=== PATIENT | male | born 1955 | race Caucasian/White ===

== ENCOUNTER 2024-03-09 10:54 | Emergency (ER) | payer MEDICARE, SELFPAY ==
[2024-03-09 11:12] VITALS: BP 174/83; PULSE 57; RESP 18; TEMP 36.8; O2SAT 96
[2024-03-09 11:18] VITALS: BP 174/83; PULSE 57; RESP 18; TEMP 36.8; O2SAT 96
--- NOTE | 2024-03-09 11:41 | ED_ITS ---
HPI - URI/Sore Throat General Chief Complaint: Upper Respiratory Infection Stated Complaint: Cough Time Seen by Provider: 03/09/24 11:30 Source: patient and RN notes reviewed Mode of arrival: ambulatory Limitations: no limitations History of Present Illness HPI Narrative: Patient presents today complaining of cough, left ear pain, nasal congestion for up to 2 weeks. He also is experiencing some midback pain with coughing. Denies shortness of breath, chest pain or tightness. He has been taking a decongestant and allergy medication with mild relief. He was seen 5 days ago at his PCPs office for same symptoms where COVID test was negative. States symptoms seem to be worsening since onset. History of diabetes. He is unsure what his average blood sugar or last A1c is. Currently takes insulin. Related Data Home Medications Medication Instructions Recorded Confirmed amlodipine 10 mg tablet 10 mg PO DAILY 03/09/24 03/09/24 duloxetine 60 mg capsule,delayed 60 mg PO DIRECTED 03/09/24 03/09/24 release insulin glargine U-300 conc 300 unit subcut DIRECTED 03/09/24 unit/mL (1.5 mL) subcutaneous pen ([employer] SoloStar U-300 Insulin) metoprolol tartrate 100 mg tablet 100 mg PO DAILY 03/09/24 03/09/24 omeprazole 40 mg capsule,delayed 40 mg PO DAILY 03/09/24 03/09/24 release pen needle, diabetic 32 gauge x 03/09/24 03/09/24 5/32 (BD Kayla 2nd Gen Pen Needle) pramipexole 1 mg tablet 1 mg PO DIRECTED 03/09/24 03/09/24 rosuvastatin 20 mg tablet 20 mg PO DAILY 03/09/24 03/09/24 spironolactone 25 mg tablet 25 mg PO DAILY 03/09/24 03/09/24 torsemide 10 mg tablet 10 mg PO DAILY 03/09/24 03/09/24 warfarin 5 mg tablet 5 mg PO DAILY 03/09/24 03/09/24 Allergies Allergy/AdvReac Type Severity Reaction Status Date / Time niacin Allergy Flushing Verified 03/09/24 11:32 Review of Systems Review of Systems: CONSTITUTIONAL: Denies body aches, fever, chills, or sweats. EYES: Denies visual changes, redness, or discharge. ENT: Denies rhinorrhea, sore throat.+ congestion, left ear pain CARDIOVASCULAR: Denies chest pain, palpitations, or edema. RESPIRATORY: Denies dyspnea.+ cough GASTROINTESTINAL: Denies abdominal pain, nausea, vomiting, or diarrhea. GENITOURINARY: Denies dysuria or hematuria. SKIN: Denies rash, itching, or wounds. MUSCULOSKELETAL: Denies joint pain, or myalgia.+ back pain NEUROLOGIC: Denies headache, numbness, tingling, or weakness. PSYCH: Denies depression or anxiety. [facility] Past Medical History Medical History (Updated 03/09/24 @ 11:47 by Arabella Roger, [facility], ) Diabetes Comments At time of signature, I have reviewed and agree with nursing past medical, surgical, social and family history unless otherwise noted. Please see nursing chart for further information. There is no relevant family history pertinent to the presenting complaint Exam Narrative: GENERAL: Well-appearing, well-nourished, and in no acute distress. HEAD: Normocephalic, atraumatic. EYES: EOMI. No redness or drainage. Conjunctivae normal. ENT: Mucous membranes pink and moist. Nares congested. No rhinorrhea. TMs normal bilaterally. Throat normal. Uvula midline. NECK: Normal AROM. Supple. No lymphadenopathy. CHEST: No respiratory distress. Inspiratory and expiratory wheezing in the bilateral upper lobes. Slightly diminished in bilateral lower lobes. HEART: Regular rate and rhythm. No murmur appreciated. EXTREMITIES: Normal range of motion. No edema. SKIN: Warm, dry, no rash. Capillary refill normal. Normal skin turgor. NEURO: No focal deficits. Alert and oriented x3. Gait steady. PSYCH: Normal affect. No signs of depression or anxiety. Course Course Level of Care: Express Care Visit Vital Signs Vital signs: Vital Signs Temperature 98.2 F 03/09/24 11:12 Pulse Rate 57 L 03/09/24 11:12 Respiratory Rate 18 03/09/24 11:12 Blood Pressure 174/83 H 03/09/24 11:12 Pulse Oximetry 96 03/09/24 11:12 Oxygen Delivery Room Air 03/09/24 11:12 Temperature 98.2 F 03/09/24 11:18 Pulse Rate 57 L 03/09/24 11:18 Respiratory Rate 18 03/09/24 11:18 Blood Pressure 174/83 H 11/23/24 11:18 Pulse Oximetry 96 03/09/24 11:18 Oxygen Delivery Room Air 03/09/24 11:18 Reviewed MDM - URI/Sore Throat MDM Narrative Medical decision making narrative: Patient will be treated empirically with Augmentin for pneumonia. At this time, we do not have x-ray capabilities at this facility. Considered steroids, but since this will raise his blood sugar and he is not sure about his hours blood sugar and is unable to currently tested due to supplies, will not start on steroids at this time. Will start on an albuterol inhaler did wheezing as well as some benzonatate for his cough. Anticipatory guidance given. ED precautions given. Differential Diagnosis Differential diagnosis: Likely upper respiratory infection, sinusitis, viral infection, bronchitis and other (Pneumonia) Critical Care Time Critical Care Time Critical Care Time: No Discharge Plan Discharge Clinical Impression: Cough Qualifiers: Cough type: acute Qualified Code(s): R05.1 - Acute cough Patient Disposition: Home, Self-Care Condition: Stable Instructions: Antibiotic Form Additional Instructions: Please take all medications as prescribed. Use the albuterol inhaler for wheezing, shortness of breath, or coughing episodes. Follow-up with your PCP next week if symptoms are not improving. As discussed, please go to the ER immediately if you develop shortness of breath or chest pain. Your blood pressure was elevated above 120/80 today at Urgent Care. This puts you above the threshold for follow up. Please schedule a followup visit with your personal physician as soon as possible, for further evaluation and treatment. Even blood pressure exceeding 120/80 may indicate pre-hypertension. Prescriptions: New benzonatate 200 mg capsule 200 mg PO TID PRN (Reason: cough) Qty: 20 0RF albuterol sulfate 90 mcg/actuation HFA aerosol inhaler 2 inh inhalation Q4-6H PRN (Reason: shortness of breath or wheezing) Qty: 8.5 0RF amoxicillin-pot clavulanate 875-125 mg tablet 1 tablet PO Q12H 7 Days Qty: 14 0RF (DME) [employer] MDI Spacer Spacer See Rx Instructions .ROUTE .MEDSUPPLY Qty: 1 0RF Rx Instructions: As directed No Action pramipexole 1 mg tablet 1 mg PO DIRECTED metoprolol tartrate 100 mg tablet 100 mg PO DAILY torsemide 10 mg tablet 10 mg PO DAILY omeprazole 40 mg capsule,delayed release(DR/EC) 40 mg PO DAILY spironolactone 25 mg tablet 25 mg PO DAILY amlodipine 10 mg tablet 10 mg PO DAILY warfarin 5 mg tablet 5 mg PO DAILY rosuvastatin 20 mg tablet 20 mg PO DAILY duloxetine 60 mg capsule,delayed release(DR/EC) 60 mg PO DIRECTED (DME) pen needle, diabetic [BD Kayla 2nd Gen Pen Needle] 32 gauge x 5/32 needle MISCELLANEOUS insulin glargine U-300 conc [[employer] SoloStar U-300 Insulin] 300 unit/mL (1.5 mL) insulin pen SUBCUT DIRECTED Follow-up/Referrals: Trav,Ayesha Rendon MD [Primary Care Provider] - Time of Disposition: 11:48
== END 2024-03-09 11:55 | disposition home or self-care (01) ==
PROVIDERS: Emergency Provider Nurse Practitioner; PCP Internal Medicine
DX: R05.1 Acute cough (principal); E11.9 Type 2 diabetes mellitus without complications; Z79.4 Long term (current) use of insulin; Z79.899 Other long term (current) drug therapy; Z79.01 Long term (current) use of anticoagulants
CPT/HCPCS: 99203; G0463

== ENCOUNTER 2024-11-23 13:01 | Emergency (ER) | payer MEDICARE, SELFPAY ==
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
[2024-11-23 13:12] VITALS: BP 173/94; PULSE 80; RESP 16; TEMP 37.2; O2SAT 94
[2024-11-23] MEDS: LIDOCAINE 1% LOCAL INJ 2 ML AMPUL 4 ML INFILTRATE (13:50)
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
== END 2024-11-23 15:19 | disposition home or self-care (01) ==
PROVIDERS: PCP Internal Medicine
DX: S92.512A Displaced fracture of proximal phalanx of left lesser toe(s), initial encounter for closed fracture (principal); W22.8XXA Striking against or struck by other objects, initial encounter; E11.9 Type 2 diabetes mellitus without complications; Z79.4 Long term (current) use of insulin; I10 Essential (primary) hypertension; I48.91 Unspecified atrial fibrillation; Z79.01 Long term (current) use of anticoagulants
CPT/HCPCS: 28515; 73140; 73630; 73660; 99214; G0463; J2003